=== PATIENT | male | born 1965 | race Two or more races ===

== ENCOUNTER 2023-11-12 07:15 | Inpatient (IN) | payer OTHER ==
[~2023-11-12] VITALS: Ht 180.3 cm; Wt 99.8 kg
[2023-11-12] MEDS ORDERED: COZAAR25 MG PO (07:57)
[2023-11-12 08:27] LABS: HEMATOCRIT 49.5 % (39.0-48.0); HEMOGLOBIN 16.8 g/dL (13-16.00); MEAN CELL VOLUME 89.9 fL (80.0-100.00); MEAN CORPUSCULAR HEMOGLOBIN 30.4 pg (27.00-32.0); MEAN CORPUSCULAR HGB CONC 33.9 g/dl (32.0-36.0); PLATELET COUNT 183 K/uL (150-450); RED BLOOD COUNT 5.51 M/uL (4.00-6.00); RED CELL DISTRIBUTION WIDTH 14.7 % (11.5-14.5)
[2023-11-12 08:55] LABS: CALCIUM 9.8 mg/dL (8.5-10.1); CREATININE SERUM 0.89 mg/dL (0.70-1.30); GFR 87.49; POTASSIUM 4.68 mEq/L (3.5-5.1)
[2023-11-12 08:58] LABS: INR 0.99; PARTIAL THROMBOPLASTIN TIME 30.4 SECONDS (22.0-34.0); PROTHROMBIN TIME 10.4 SECONDS (9.0-11.5)
[2023-11-12 09:20] LABS: PH,URINE 5.5 (5.0-8.0); URINE APPEARANCE Clear; URINE BILIRRUBIN Negative (NEGATIVE); URINE BLOOD Negative; URINE COLOR Yellow; URINE GLUCOSE Negative (NEGATIVE); URINE LEUKOCYTE Negative; URINE NITRATE Negative; URINE PROTEIN Negative (NEGATIVE); URINE UROBILINOGEN 0.2 E.U./dl
[2023-11-12 09:28] LABS: URINE RBC 4.8 uL (0.0-20.8)
[2023-11-21 05:11] LABS: HEMATOCRIT 45.5 % (39.0-48.0); HEMOGLOBIN 15.3 g/dL (13-16.00); MEAN CELL VOLUME 90.8 fL (80.0-100.00); MEAN CORPUSCULAR HEMOGLOBIN 30.6 pg (27.00-32.0); MEAN CORPUSCULAR HGB CONC 33.7 g/dl (32.0-36.0); PLATELET COUNT 201 K/uL (150-450); RED BLOOD COUNT 5.01 M/uL (4.00-6.00); RED CELL DISTRIBUTION WIDTH 14.4 % (11.5-14.5)
[2023-11-21 05:14] LABS: ALBUMIN 3.3 gm/dL (3.4-5.0); CALCIUM 8.5 mg/dL (8.5-10.1); CREATININE SERUM 0.86 mg/dL (0.70-1.30); GFR 91.02; PHOSPHOROUS 2.5 mg/dL (2.5-4.9); POTASSIUM 3.56 mEq/L (3.5-5.1)
== END 2023-11-21 15:07 | disposition home or self-care (01) | DRG 708 ==
LOC: O/R 11-20 05:26 → SURG 11-20 07:00
PROVIDERS: ADMIT Urology; ATTEND Urology
PROC: 8E0W4CZ Robotic Assisted Procedure of Trunk Region, Percutaneous Endoscopic Approach (ICD-10-PCS; 2023-11-20)
PROC: 0VT04ZZ Resection of Prostate, Percutaneous Endoscopic Approach (ICD-10-PCS; principal; 2023-11-20 07:00)
DX: N40.1 Benign prostatic hyperplasia with lower urinary tract symptoms (principal); Z20.822 Contact with and (suspected) exposure to COVID-19
CPT/HCPCS: 55867; S2900

== ENCOUNTER 2023-12-19 10:39 | Emergency (ER) | payer OTHER ==
[~2023-12-19] VITALS: Ht 180.3 cm; Wt 94.8 kg
[~2023-12-19 10:39] MED LIST: COZAAR25 MG PO
[2023-12-19 12:13] LABS: HEMATOCRIT 44.9 % (39.0-48.0); HEMOGLOBIN 15.1 g/dL (13-16.00); MEAN CELL VOLUME 91.5 fL (80.0-100.00); MEAN CORPUSCULAR HEMOGLOBIN 30.7 pg (27.00-32.0); MEAN CORPUSCULAR HGB CONC 33.6 g/dl (32.0-36.0); PLATELET COUNT 188 K/uL (150-450); RED BLOOD COUNT 4.91 M/uL (4.00-6.00)
[2023-12-19 12:33] LABS: CALCIUM 9.5 mg/dL (8.5-10.1); CREATININE SERUM 0.93 mg/dL (0.70-1.30); GFR 83.16; POTASSIUM 4.13 mEq/L (3.5-5.1)
[2023-12-19 12:45] LABS: PARTIAL THROMBOPLASTIN TIME 28.6 SECONDS (22.0-34.0); PROTHROMBIN TIME 10.5 SECONDS (9.0-11.5)
[2023-12-19 13:54] LABS: URINE APPEARANCE Turbid; URINE BILIRRUBIN Small (NEGATIVE); URINE BLOOD Large; URINE COLOR Red; URINE GLUCOSE Negative (NEGATIVE); URINE LEUKOCYTE Moderate; URINE NITRATE Negative; URINE UROBILINOGEN 0.2 E.U./dl
[2023-12-19 14:00] LABS: URINE BACTERIA 495.1 uL (0.0-1933); URINE EPITHELIAL CELLS 3.5 uL (0.0-38.8); URINE WBC 1377.4 uL (0.0-23.2)
[2023-12-19 14:26] LABS: URINE PROTEIN 100 (NEGATIVE); URINE RBC > 10558.9 uL (0.0-20.8)
[2023-12-19] MEDS ORDERED: 0.9 % SODIUM CHLORIDE 1,000 ML IV STA (15:21)
[2023-12-19] MEDS ORDERED: levoFLOXacin IN DEXTROSE 5 % 5 MG/ML PIGGYBAG IV ONE (15:30)
[2023-12-19] MEDS ORDERED: MORPHINE SULFATE 4 MG/ML CARTRIDGE IV ONE (19:15)
== END 2023-12-19 20:04 | disposition home or self-care (01) ==
LOC: ER 10:40
PROVIDERS: Emergency Medicine
DX: N30.90 Cystitis, unspecified without hematuria (principal); R31.9 Hematuria, unspecified

== ENCOUNTER 2024-12-25 06:28 | Emergency (ER) | payer OTHER ==
[~2024-12-25] VITALS: Ht 180.3 cm; Wt 90.3 kg
[2024-12-25] MEDS ORDERED: CEFTRIAXONE SODIUM 2,000 MG VIAL IV STA (08:33)
[2024-12-25] MEDS ORDERED: DIPHENHYDRAMINE HCL 50 MG/ML VIAL 1ML IM STA (08:35)
[2024-12-25] MEDS ORDERED: METHYLPREDNISOLONE SOD SUCC 125 MG VIAL IV STA (08:35)
[2024-12-25 10:20] LABS: HEMATOCRIT 49.4 % (39.0-48.0); MEAN CELL VOLUME 91.5 fL (80.0-100.00); MEAN CORPUSCULAR HEMOGLOBIN 31.5 pg (27.00-32.0); MEAN CORPUSCULAR HGB CONC 34.4 g/dl (32.0-36.0); PH,URINE 5.5 (5.0-8.0); PLATELET COUNT 152 K/uL (150-450); RED BLOOD COUNT 5.39 M/uL (4.00-6.00); RED CELL DISTRIBUTION WIDTH 15.6 % (11.5-14.5); URINE APPEARANCE Clear; URINE BILIRRUBIN Negative (NEGATIVE); URINE BLOOD Trace; URINE COLOR Dark Yellow; URINE GLUCOSE Negative (NEGATIVE); URINE KETONE Negative (NEGATIVE); URINE LEUKOCYTE Small; URINE NITRATE Positive; URINE PROTEIN Negative (NEGATIVE); URINE UROBILINOGEN 0.2 E.U./dl
[2024-12-25 10:24] LABS: URINE BACTERIA 2111.3 uL (0.0-1933); URINE EPITHELIAL CELLS 3.4 uL (0.0-38.8); URINE RBC 15.1 uL (0.0-20.8); URINE WBC 114.5 uL (0.0-23.2)
[2024-12-25 10:33] LABS: CALCIUM 9.5 mg/dL (8.5-10.1); CREATININE SERUM 0.86 mg/dL (0.70-1.30); GFR 90.71; POTASSIUM 4.08 mEq/L (3.5-5.1)
[2024-12-25 10:35] LABS: URINE CAST 0.44 uL (0.0-1.40)
== END 2024-12-25 14:33 | disposition home or self-care (01) ==
LOC: ER 06:31
PROVIDERS: General Practice
DX: N39.0 Urinary tract infection, site not specified (principal)

== ENCOUNTER 2025-01-09 22:10 | Emergency (ER) | payer OTHER ==
[~2025-01-09] VITALS: Ht 180.3 cm; Wt 90.3 kg
[2025-01-09] MEDS ORDERED: CEFTRIAXONE SODIUM 1,000 MG VIAL IM STA (22:38)
[2025-01-09] MEDS ORDERED: KETOROLAC TROMETHAMINE 30 MG VIAL IM STA (22:38)
[2025-01-09] MEDS ORDERED: HYDROCODONE/CHLORPHEN P-STIREX 5 ML ML PO STA (22:39)
[2025-01-09] MEDS ORDERED: KETOROLAC TROMETHAMINE 60 MG VIAL IM ONE (23:14)
[2025-01-09] MEDS ORDERED: LIDOCAINE HCL 1% 10ML VIAL ONE (23:14)
[2025-01-09] MEDS ORDERED: CEFTRIAXONE SODIUM 1,000 MG VIAL ONE (23:14)
== END 2025-01-09 23:57 | disposition home or self-care (01) ==
LOC: ER 22:13
DX: J06.9 Acute upper respiratory infection, unspecified (principal); J00 Acute nasopharyngitis [common cold]; Z91.041 Radiographic dye allergy status